=== PATIENT | female | born 1970 | race Caucasian/White ===

== ENCOUNTER → 2017-08-21 | Outpatient (CLI) | payer OTHER ==
[~2017-08-21] MED LIST: ANAPROX DS550 MG PO; CHANTIX STARTER1 TAB PO; DAYPRO600 M1 PO; KEFLEX500 MG PO; LEVOFLOXACIN500 MG PO; MOTRIN800 MG PO; NKHM; PENICILLIN250 MG PO; PYRIDIUM100 MG PO; ROBAXIN750 MG PO; TRAMADOL HCL50 MG PO
== END | disposition home or self-care (01) ==
LOC: MAMMO 12:32
DX: R92.8 Other abnormal and inconclusive findings on diagnostic imaging of breast (principal)

== ENCOUNTER 2018-03-20 17:18 | Inpatient (IN) | payer OTHER ==
[~2018-03-20] VITALS: Ht 167.6 cm; Wt 71.0 kg
--- NOTE | ~2018-03-20 | EKG ---
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
--- NOTE | ~2018-03-20 | EKG ---
[place], [place] ELECTROCARDIOGRAM REPORT NAME: YSABEL ZAMORA UNIT #: [id number] ROOM: 408 DOCTOR: PRAVIN DRAFT REPORT BIRTHDATE: [birth year] [facility] Test Date: 2018-03-20 Test Time: 17:22:21 Pat Name: YSABEL ZAMORA Department: Room: 408 Gender: F Display Associate: Priscilla Eagle : 1970 Requested By: NORRIS JIN Order Number: [id number] Reading MD: Amol Pepper MD Measurements Intervals [place] Rate: 98 P: 42 CO: 148 QRS: 17 QRSD: 88 T: 34 QT: 363 QTc: 464 Interpretive Statements Sinus arrhythmia Ventricular trigeminy Electronically Signed On 03-21-2018 17:44:04 PST by Amol Pepper MD CM:EKGRPT:ELECTROCARDIOGRAM REPORT 1722 1744 NORRIS SULTANA DRAFT REPORT NORRIS JIN DO
--- NOTE | ~2018-03-20 | WRIGHTHP ---
[place], [place] PATIENT HISTORY AND PHYSICAL EXAM NAME: YSABEL ZAMORA [facility] #: [id number] UNIT #: [id number] ROOM: 408 DOCTOR: ELIN HOFFMAN MD BIRTHDATE: [birth year] DOS: 03/20/2018 HISTORY OF PRESENT ILLNESS: The patient is a 47-year-old female with a past medical history of COPD and nicotine smoke dependence. History of steel burke placement in the right leg for fracture of the lateral malleolus. The patient presented to [facility] Emergency Department with complaints of left-sided chest pressure, which was recurrent, without nausea or diaphoresis. It was radiating into the left arm and left side of her neck. She had some minor episodes. After admission to the hospital, the patient was admitted to rule out for myocardial infarction and for cardiac stress testing. Cardiology was consulted. REVIEW OF SYSTEMS: RESPIRATORY: No increasing shortness of breath. GASTROINTESTINAL: No nausea, vomiting, diarrhea, constipation. CARDIOVASCULAR SYSTEM: Left-sided chest pressure and pains going into the left arm. SOCIAL HISTORY: Smokes cigarettes. Denies any alcohol or drug abuse. FAMILY HISTORY: Noncontributory. HOME MEDICATIONS: Ibuprofen daily as needed. ALLERGIES: No known drug allergies. PHYSICAL EXAMINATION: GENERAL: Alert, oriented x 3. HEENT AND NECK: Extraocular movements are intact. Sclerae are anicteric. Oral mucosa is moist and clean. No obvious facial weakness. Neck is supple without any lymphadenopathy. No thyromegaly. No JVD. No carotid arterial bruits. LUNGS: Clear to auscultation. No wheezing. No rhonchi. CARDIOVASCULAR SYSTEM: Heart rate is regular in rate and rhythm. S1 and S2 normally audible. No significant murmur or any other abnormal cardiac sounds. ABDOMEN: Soft, nontender. No obvious organomegaly. Bowel sounds are present. No obvious herniation. EXTREMITIES: Without significant cyanosis or edema. Warm to touch. CENTRAL NERVOUS SYSTEM: Alert and oriented x 3. Cranial nerves II-XII are intact. Speech is normal. The patient is able to move all extremities. Normal muscle strength. Deep tendon reflexes are equal on both sides. Plantars were downgoing. LABORATORY DATA: Negative cardiac enzymes. Potassium low at 3.4. Normal bilirubin, liver enzymes. IMPRESSION: 1. The patient with left-sided chest pressure and pain radiating into the left [facility] [place], [place] PATIENT HISTORY AND PHYSICAL EXAM NAME: YSABEL ZAMORA UNIT #: [id number] ROOM: 408 DOCTOR: ELIN HOFFMAN MD BIRTHDATE: [birth year] arm, being ruled out for myocardial infarction with serial cardiac enzymes and she has been scheduled for a cardiac stress test in the morning by the lorry weigher, Dr. Pepper. 2. Nicotine smoke dependence. The patient has been encouraged to stop smoking cigarettes and bad effects of cigarette smoke on her health have been explained to her. 3. History of steel burke placement in the right leg for avulsion fracture on the lateral malleolus of the right ankle. The patient continued on ibuprofen as needed for pain control. ELIN HOFFMAN MD CM:HISPHYS:PATIENT HISTORY AND PHYSICAL EXAMINATION 08 03 ELIN HOFFMAN MD 03/21/182201 interface
--- NOTE | ~2018-03-20 | EKG ---
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
--- NOTE | ~2018-03-20 | PR ---
[place], [place] PROGRESS NOTE NAME: YSABEL ZAMORA [facility] #: [id number] UNIT #: [id number] ROOM: 408 DOCTOR: GURVINDER KAPLAN MD BIRTHDATE: [birth year] DOS: 03/22/2018 CARDIOLOGY PROGRESS NOTE SUBJECTIVE: The patient was seen today, 03/22/2018, in the Cardiology Department prior to her stress test. She had no further problems overnight. Since she has been hospitalized, her blood pressure has stabilized. Serial cardiac biomarkers have remained normal. She has not had any further chest pain. PHYSICAL EXAMINATION: VITAL SIGNS: Her pulse is 52 and regular, blood pressure is 122/76. She is afebrile and weighs 70.9 kilograms. She has a body mass index of 25.2. HEENT: Normocephalic and atraumatic. Extraocular muscles are intact. Sclerae are clear. Pupils equal, round and react to light. The oral mucosa is moist. NECK: Supple. She has no jugular distention. Carotids are full. LUNGS: Respirations are unlabored. Her chest has decreased breath sounds at the bases, but no wheezes or rales. HEART: Has a regular rhythm with an S4 gallop, but no S3. ABDOMEN: Soft and normally active. EXTREMITIES: Showed no edema. IMPRESSIONS: 1. Chest pain, suspicious for myocardial ischemia. 2. Long-term and ongoing cigarette abuse. PLAN: We will proceed with an exercise stress test with myocardial perfusion imaging today. Once again, the patient was advised to stop smoking. Further recommendations will depend upon the results of the stress test. [facility] Cardiology and I thank Dr. Bowen for asking our advice regarding the patient's assessment. GURVINDER KAPLAN MD CM:PNTRANS [id number] GURVINDER KAPLAN MD 03/22/18 1317 interface
--- NOTE | ~2018-03-20 | PR ---
[place], [place] PROGRESS NOTE NAME[id number] UNIT #: [id number] ROOM: 408 DOCTOR: ELIN HOFFMAN MD BIRTHDATE: [birth year] DOS: 03/22/2018 SUBJECTIVE: The patient is undergoing cardiac stress test today for evaluation of chest pain. OBJECTIVE: VITAL SIGNS: Blood pressure 122/76, heart rate of 60 beats per minute, breathing normally, afebrile. IMPRESSION: 1. Nicotine smoke dependence. The patient has been encouraged to stop smoking cigarettes. 2. Steel burke placement, right leg for avulsion fracture of the lateral malleolus of the right ankle. The patient takes ibuprofen off and on. ELIN HOFFMAN MD CM:PNTRANS [id number] ELIN HOFFMAN MD 03/23/18 0544 interface
[2018-03-20 17:21] VITALS: BP 175/101
[2018-03-20 17:36] LABS: BASO # 0.1 10*3/uL (0.0-0.1); BASO % 0.7 % (0.0-1.0); EOS # 0.2 10*3/uL (0.0-0.4); EOS % 2.5 % (1.0-4.0); HEMATOCRIT 37.1 % (37.0-47.0); HEMOGLOBIN 11.9 g/dl (12.0-16.0); LYMPH # 3.1 10*3/uL (1.3-4.4); LYMPH % 34.6 % (27.0-41.0); MEAN CELL VOLUME 89.2 fl (81.0-99.0); MEAN CORPUSCULAR HGB 28.6 pg (27.0-31.0); MEAN CORPUSCULAR HGB CONC 32.1 g/dl (33.0-37.0); MONO # 0.6 10*3/uL (0.1-1.0); MONO % 6.3 % (3.0-9.0); NEUT % 55.7 % (47.0-73.0); PLATELET COUNT AUTOMATED 344 10*3/uL (130-400); RED BLOOD COUNT 4.16 10*6/uL (4.10-5.10); RED CELL DISTRI WIDTH 16.4 % (0-14.5); WHITE BLOOD COUNT 8.9 10*3/uL (4.8-10.8)
[2018-03-20 17:46] VITALS: BP 170/90
[2018-03-20 17:47] LABS: ACT PARTIAL THROMBO TIME 23.7 SECONDS (20.8-31.5); INTERNATIONAL NORM RATIO 0.9 (2.0-3.5)
[2018-03-20 17:53] LABS: ALBUMIN 3.7 gm/dl (3.1-4.5); ALKALINE PHOSPHATASE 90 U/L (45-117); BUN 10 mg/dl (7-24); CHLORIDE 107 mmol/L (98-107); CREATININE 0.72 mg/dL (0.55-1.02); POTASSIUM 3.4 mmol/L (3.5-5.1); SGOT/AST 25 IU/L (3-35); SGPT/ALT 26 U/L (12-78); SODIUM 138 mmol/L (136-145); TOTAL PROTEIN 8.1 gm/dL (6.4-8.2)
[2018-03-20 17:54] LABS: LIPASE 201 U/L (73-393)
[2018-03-20 17:55] LABS: TROPONIN I < 0.015 ng/ml (<0.045)
[2018-03-20 18:33] VITALS: BP 165/105
[2018-03-20 18:59] VITALS: BP 168/98
[2018-03-20 19:44] VITALS: BP 157/103
[2018-03-20 20:40] VITALS: BP 174/78
[2018-03-20] MEDS ORDERED: IBU800 M2 PO (21:15)
[2018-03-21] VITALS: BP 134/70
[2018-03-21 12:00] VITALS: BP 102/78
[2018-03-21 16:00] VITALS: BP 123/71
[2018-03-21 20:00] VITALS: BP 131/72
[2018-03-22] VITALS: BP 117/68
[2018-03-22 08:00] VITALS: BP 122/76
[2018-03-22 12:00] VITALS: BP 147/86
== END 2018-03-22 13:49 | disposition home or self-care (01) | DRG 311 ==
LOC: ED 17:18 → 4E 18:38 → EDHOLD 18:38 → 4E 20:07
PROVIDERS: Emergency Medicine
PROC: 4A02XM4 Measurement of Cardiac Total Activity, External Approach (ICD-10-PCS; principal; 2018-03-22)
DX: I20.0 Unstable angina (principal); J44.9 Chronic obstructive pulmonary disease, unspecified; F17.210 Nicotine dependence, cigarettes, uncomplicated; Z79.899 Other long term (current) drug therapy; Z87.81 Personal history of (healed) traumatic fracture; Z82.49 Family history of ischemic heart disease and other diseases of the circulatory system

== ENCOUNTER → 2018-04-12 | Outpatient (CLI) | payer OTHER ==
[~2018-04-12] MED LIST changes: +IBU800 M2 PO
[2018-04-12 11:03] LABS: HEMATOCRIT 38.8 % (37.0-47.0); HEMOGLOBIN 12.5 g/dl (12.0-16.0); MEAN CELL VOLUME 92.2 fl (81.0-99.0); MEAN CORPUSCULAR HGB 29.7 pg (27.0-31.0); MEAN CORPUSCULAR HGB CONC 32.2 g/dl (33.0-37.0); MEAN PLATELET VOLUME 9.7 fl (9.6-12.3); RED BLOOD COUNT 4.21 10*6/uL (4.10-5.10); RED CELL DISTRI WIDTH 16.9 % (0-14.5); WHITE BLOOD COUNT 6.8 10*3/uL (4.8-10.8)
[2018-04-12 11:37] LABS: ALBUMIN 3.3 gm/dl (3.1-4.5); BUN 7 mg/dl (7-24); CHLORIDE 106 mmol/L (98-107); CHOLESTEROL 208 mg/dL (<200); CREATININE 0.71 mg/dL (0.55-1.02); HDL CHOLESTEROL 52 mg/dl (40-60); LDL CHOLESTEROL 132 mg/dL (9-159); POTASSIUM 3.8 mmol/L (3.5-5.1); SGOT/AST 14 IU/L (3-35); SGPT/ALT 21 U/L (12-78); SODIUM 141 mmol/L (136-145); TOTAL PROTEIN 7.6 gm/dL (6.4-8.2); TRIGLYCERIDES 121 mg/dl (<150); VLDL CHOLESTEROL 24 mg/dL (6-40)
[2018-04-12 11:39] LABS: ALKALINE PHOSPHATASE 82 U/L (45-117)
== END | disposition home or self-care (01) ==
LOC: LAB 10:40
PROVIDERS: Family Medicine
DX: E55.9 Vitamin D deficiency, unspecified (principal); E78.00 Pure hypercholesterolemia, unspecified; R53.83 Other fatigue; R07.89 Other chest pain

== ENCOUNTER → 2018-08-16 | Outpatient (CLI) | payer OTHER | END | disposition home or self-care (01) | LOC: RAD 08:53 | DX: M54.2 Cervicalgia (principal) ==

== ENCOUNTER → 2019-06-16 | Outpatient (CLI) | payer OTHER ==
[2019-06-16 12:15] LABS: HEMATOCRIT 31.3 % (37.0-47.0); HEMOGLOBIN 9.6 g/dl (12.0-16.0); MEAN CELL VOLUME 91.8 fl (81.0-99.0); MEAN CORPUSCULAR HGB 28.2 pg (27.0-31.0); MEAN CORPUSCULAR HGB CONC 30.7 g/dl (33.0-37.0); MEAN PLATELET VOLUME 10.2 fl (9.6-12.3); RED BLOOD COUNT 3.41 10*6/uL (4.10-5.10); RED CELL DISTRI WIDTH 15.2 % (0-14.5); WHITE BLOOD COUNT 8.9 10*3/uL (4.8-10.8)
[2019-06-16 12:45] LABS: ALBUMIN 3.2 gm/dl (3.1-4.5); BUN 9 mg/dl (7-24); CHLORIDE 106 mmol/L (98-107); CHOLESTEROL 186 mg/dL (<200); POTASSIUM 3.7 mmol/L (3.5-5.1); SGOT/AST 35 IU/L (3-35); SGPT/ALT 32 U/L (12-78); SODIUM 136 mmol/L (136-145)
[2019-06-16 12:48] LABS: ALKALINE PHOSPHATASE 101 U/L (45-117); HDL CHOLESTEROL 30 mg/dl (40-60); TOTAL PROTEIN 7.3 gm/dL (6.4-8.2); TRIGLYCERIDES 531 mg/dl (<150); VITAMIN D, 25-HYDROXY 7.7 ng/mL (30-100)
== END | disposition home or self-care (01) ==
LOC: LAB 10:19
PROVIDERS: Family Medicine
DX: R53.83 Other fatigue (principal); D64.9 Anemia, unspecified; M19.90 Unspecified osteoarthritis, unspecified site; N93.9 Abnormal uterine and vaginal bleeding, unspecified

== ENCOUNTER → 2019-06-26 | Outpatient (CLI) | payer OTHER | END | disposition home or self-care (01) | LOC: US 13:24 | DX: N93.9 Abnormal uterine and vaginal bleeding, unspecified (principal) ==

== ENCOUNTER → 2020-09-04 | Outpatient (CLI) | payer OTHER ==
[2020-09-04 11:58] LABS: HEMATOCRIT 44.4 % (37.0-47.0); MEAN CELL VOLUME 95.7 fl (81.0-99.0); MEAN CORPUSCULAR HGB CONC 32.4 g/dl (33.0-37.0); MEAN PLATELET VOLUME 10.4 fl (9.6-12.3); RED BLOOD COUNT 4.64 10*6/uL (4.10-5.10); WHITE BLOOD COUNT 7.9 10*3/uL (4.8-10.8)
[2020-09-04 12:26] LABS: ALBUMIN 3.5 gm/dl (3.1-4.5); ALKALINE PHOSPHATASE 101 U/L (45-117); BUN 12 mg/dl (7-24); CHLORIDE 112 mmol/L (98-107); CHOLESTEROL 252 mg/dL (<200); CREATININE 0.69 mg/dL (0.55-1.02); LDL CHOLESTEROL 176 mg/dL (9-159); POTASSIUM 4.4 mmol/L (3.5-5.1); SGOT/AST 27 IU/L (3-35); SGPT/ALT 33 U/L (12-78); SODIUM 139 mmol/L (136-145); TOTAL PROTEIN 8.1 gm/dL (6.4-8.2); TRIGLYCERIDES 89 mg/dl (<150)
[2020-09-04 14:01] LABS: VITAMIN D, 25-HYDROXY 23.6 ng/mL (30-100)
== END | disposition home or self-care (01) ==
LOC: LAB 10:51
PROVIDERS: ATTEND Family Medicine
DX: E78.00 Pure hypercholesterolemia, unspecified (principal); R53.83 Other fatigue; E74.9 Disorder of carbohydrate metabolism, unspecified; E55.9 Vitamin D deficiency, unspecified

== ENCOUNTER → 2020-09-21 | Outpatient (CLI) | payer OTHER | END | disposition home or self-care (01) | LOC: MAMMO 16:03 | PROVIDERS: ATTEND Family Medicine | DX: Z12.31 Encounter for screening mammogram for malignant neoplasm of breast (principal) ==

== ENCOUNTER → 2020-10-20 | Outpatient (CLI) | payer OTHER | END | disposition home or self-care (01) | LOC: MAMMO 07:40 | PROVIDERS: ATTEND Family Medicine | DX: J44.9 Chronic obstructive pulmonary disease, unspecified (principal); R92.8 Other abnormal and inconclusive findings on diagnostic imaging of breast; R05 Cough; Z71.6 Tobacco abuse counseling ==

== ENCOUNTER → 2022-04-28 | Outpatient (CLI) | payer OTHER | END | disposition home or self-care (01) | LOC: US 03-30 07:30 | PROVIDERS: ATTEND Family Medicine | DX: K82.4 Cholesterolosis of gallbladder (principal); R10.11 Right upper quadrant pain ==

== ENCOUNTER → 2022-06-05 | Outpatient (CLI) | payer OTHER | END | disposition home or self-care (01) | LOC: RAD 08:56 | PROVIDERS: ATTEND Family Medicine | DX: F17.200 Nicotine dependence, unspecified, uncomplicated (principal); R05.9 Cough, unspecified; R06.02 Shortness of breath ==

== ENCOUNTER → 2022-09-05 | Outpatient (CLI) | payer OTHER | END | disposition home or self-care (01) | LOC: MAMMO 08-23 11:30 | PROVIDERS: ATTEND Family Medicine | DX: Z12.31 Encounter for screening mammogram for malignant neoplasm of breast (principal) ==

== ENCOUNTER → 2024-05-30 | Outpatient (CLI) | payer OTHER ==
[2024-05-30 11:22] LABS: HEMATOCRIT 42.7 % (37.0-47.0); MEAN CELL VOLUME 97.7 fl (81.0-99.0); MEAN CORPUSCULAR HGB CONC 32.8 g/dl (33.0-37.0); MEAN PLATELET VOLUME 10.2 fl (9.6-12.3); RED BLOOD COUNT 4.37 10*6/uL (4.10-5.10); RED CELL DISTRI WIDTH 12.4 % (0-14.5); WHITE BLOOD COUNT 6.5 10*3/uL (4.8-10.8)
[2024-05-30 11:55] LABS: VITAMIN D, 25-HYDROXY 30.1 ng/mL (30-100)
[2024-05-30 11:56] LABS: ALKALINE PHOSPHATASE 88 U/L (46-116); BUN 8 mg/dl (9-23); CHLORIDE 107 mmol/L (98-107); CHOLESTEROL 237 mg/dL (<200); FREE T4 1.07 ng/dl (0.89-1.76); LDL CHOLESTEROL 163 mg/dL (9-159); POTASSIUM 4.2 mmol/L (3.4-5.1); SGPT/ALT 28 U/L (5-49); TOTAL PROTEIN 7.3 gm/dL (6.0-8.0); TRIGLYCERIDES 121 mg/dl (<150)
== END | disposition home or self-care (01) ==
LOC: LAB 11:00
PROVIDERS: ATTEND Family Medicine
DX: J43.9 Emphysema, unspecified (principal); R06.02 Shortness of breath; R05.9 Cough, unspecified; R09.89 Other specified symptoms and signs involving the circulatory and respiratory systems; E78.00 Pure hypercholesterolemia, unspecified; E55.9 Vitamin D deficiency, unspecified; R53.83 Other fatigue

== ENCOUNTER → 2024-06-24 | Outpatient (CLI) | payer OTHER | END | disposition home or self-care (01) | LOC: MAMMO 17:00 | PROVIDERS: ATTEND Family Medicine | DX: Z12.31 Encounter for screening mammogram for malignant neoplasm of breast (principal); R92.323 Mammographic fibroglandular density, bilateral breasts; R92.1 Mammographic calcification found on diagnostic imaging of breast ==